=== PATIENT | male | born 1970 | race Caucasian/White ===

== ENCOUNTER → 2020-06-09 | Day surgery (SDC) | payer OTHER ==
[~2020-06-09] MED LIST: 0.9 % SODIUM CHLORIDE 10 ML VIAL. ONE; DEXAMETHASONE SOD PHOS 10 MG/ML VIAL. ONE; IOHEXOL 300 MG/ML 50 ML VIAL. ONE; LIDOCAINE 1% PF 30 ML VIAL. ONE; methylPREDNISolone ACETATE 80 MG/ML VIAL. ONE
[2020-06-09 12:09] VITALS: BP 118/77
== END | disposition home or self-care (01) ==
LOC: SURG 11:10
PROVIDERS: ATTEND Anesthesiology
DX: M54.12 Radiculopathy, cervical region (principal); M79.10 Myalgia, unspecified site; M50.30 Other cervical disc degeneration, unspecified cervical region; I10 Essential (primary) hypertension; E11.9 Type 2 diabetes mellitus without complications; Z95.5 Presence of coronary angioplasty implant and graft; Z88.8 Allergy status to other drugs, medicaments and biological substances
CPT/HCPCS: 62321; J1100; Q9967; J1040

== ENCOUNTER 2020-07-22 13:36 | Emergency (ER) | payer OTHER ==
[~2020-07-22] VITALS: Ht 167.6 cm; Wt 95.0 kg
--- NOTE | 2020-07-22 13:58 | PHYS DOC ---
Past History Past Medical History: Diabetes, NH, Other Additional Past Medical Histor: only has right kidney Past Surgical History: Other Additional Past Surgical Histo: Cardica Stentsx3 Alcohol Use: Rarely General Adult EDM: Chief Complaint: Hematuria HPI: HPI: 49-year-old male presents with rectal bleeding and hematuria. The patient only has a right kidney congenitally. He tells me that he has been having issues with constipation lately and has been needing to take a stool softener or laxative. He is not sure why this bowel habit changed several weeks ago. Today, he had some medium red blood on his toilet paper. He also had 2 episodes of urinating that appeared bloody. Patient has had a kidney stone in the past. He does not have any pain at all. Denies fever or chills. Review of Systems: Review of Systems: Constitutional: Denies fever or chills Eyes: Denies change in visual acuity HENT: Denies nasal congestion or sore throat Respiratory: Denies cough or shortness of breath Cardiovascular: Denies chest pain or edema GI: Blood in stool. Denies abdominal pain, nausea, vomiting, or diarrhea : Hematuria Musculoskeletal: Denies back pain or joint pain Integument: Denies rash Neurologic: Denies headache, focal weakness or sensory changes Endocrine: Denies polyuria or polydipsia Lymphatic: Denies swollen glands Psychiatric: Denies depression or anxiety Current Medications: Current Meds: Current Medications Medications (Trade) Dose Ordered Sig/Bakari Start Time Stop Time Status Last Admin Dose Admin Pantoprazole Sodium (Protonix Vial) 80 mg 1X ONCE 07/22/20 14:00 07/22/20 14:01 Sodium Chloride 1,000 ml @ 1,000 mls/hr 1X ONCE 07/22/20 14:00 07/22/20 14:59 Allergies: Allergies: Allergies Coded Allergies Type Severity Reaction Last Updated Verified Penicillins Allergy Unknown 07/22/20 Yes cephalexin Allergy Unknown 06/09/20 Yes Physical Exam: PE: Constitutional: Well developed, well nourished, obese, no acute distress, non- toxic appearance. [] HENT: Normocephalic, atraumatic, bilateral external ears normal, oropharynx moist, no oral exudates, nose normal. [] Eyes: PERRLA, EOMI, conjunctiva normal, no discharge. [] Neck: Normal range of motion, no tenderness, supple, no stridor. [] Cardiovascular: Heart rate regular rhythm, no murmur [] Lungs & Thorax: Bilateral breath sounds clear to auscultation [] Abdomen: Bowel sounds normal, soft, no tenderness, no masses, no pulsatile masses. [] Skin: Warm, dry, no erythema, no rash. [] Back: No tenderness, no CVA tenderness. [] Extremities: No tenderness, no cyanosis, no clubbing, ROM intact, no edema. [] Neurologic: Alert and oriented X 3, normal motor function, normal sensory function, no focal deficits noted. [] Psychologic: Affect normal, judgement normal, mood normal. [] Current Patient Data: Vital Signs: Vital Signs Date Time Temp Pulse Resp B/P (MAP) Pulse Ox O2 Delivery O2 Flow Rate FiO2 07/22/20 13:42 98.3 104 16 144/95 (111) 98 Room Air EKG: EKG: [] Radiology/Procedures: Radiology/Procedures: [] Impressions: INDICATION: Reason: hematuria, blood in stool / Spl. Instructions: / History: . COMPARISON: None. TECHNIQUE: Axial CT images obtained through the abdomen and pelvis with contrast. One or more of the following individualized dose reduction techniques were utilized for this examination: 1. Automated exposure control; 2. Adjustment of the mA and/or kV according to patient size; 3. Use of iterative reconstruction technique. FINDINGS: Partial visualization of coronary artery calcific atherosclerosis. Multifocal plaque throughout the vasculature. Fat-containing left inguinal hernia. Liver is prominent in size. No peripancreatic fluid collection. Spleen unremarkable. Absent left kidney. There is a couple low-density right renal lesions. This includes exophytic low- density lesion measuring 13 mm which is most likely cystic in nature. Additional subcentimeter low-density right renal lesion which is too small to characterize. Right renal pelvis stone measuring 6 mm with mild prominence of the urothelium. No radiopaque obstructive ureter stone is seen. Urinary bladder wall is mildly prominent. Mild prominence of the sigmoid colon wall in a region with lack of distention. No dilated loops of bowel to suggest obstruction. Colonic diverticulosis. No periappendiceal inflammatory changes. Degenerative changes of the hips and spine. IMPRESSION: * Nonobstructive right renal stone with surrounding urothelial thickening. Given the location the patient would be at risk for intermittent obstruction from this renal stone. The urothelial thickening could be from adjacent irritation. * Mild wall thickening of the urinary bladder. Would correlate with symptoms given that causes such as mild cystitis could have this appearance. * There is also some mild prominence of the rectosigmoid wall which could be from mild inflammation or a region of contraction given that the colon is not distended at this location. Electronically signed by: Rodri Polanco MD (07/22/2020 3:54 PM) [id number] DICTATED AND SIGNED BY: RODRI POLANCO MD DATE: 07/22/20 1543 CC: LOLA CANTU DO; LYNDA KAHN MD ~MTH0 0 Heart Score: C/O Chest Pain: N/A Risk Factors: Risk Factors: DM, Current or recent (<one month) smoker, HTN, HLP, family history of CAD, obesity. Risk Scores: Score 0 - 3: 2.5% MACE over next 6 weeks - Discharge Home Score 4 - 6: 20.3% MACE over next 6 weeks - Admit for Clinical Observation Score 7 - 10: 72.7% MACE over next 6 weeks - Early Invasive Strategies Course & Med Decision Making: Course & Med Decision Making Pertinent Labs and Imaging studies reviewed. (See chart for details) The patient CBC is unremarkable. His urinalysis is significant for urinary tract infection. He has a penicillin cephalosporin allergy. I will treat him with 750 mg of levofloxacin IV. CT is pending. CT shows a stone in the collecting system of the kidney that is likely causing intermittent obstruction. The patient's creatinine is normal at this time. I have advised that he make an appointment as soon as possible with the urologist and take the levofloxacin for the next 6 days. They may need to remove that stone. If the patient's condition worsens in any way he will come back to the emergency room or go directly to the hospital that has urology. He is stable for discharge at this time. [] Yaya Disclaimer: Yaya Disclaimer: This electronic medical record was generated, in whole or in part, using a voice recognition dictation system. Departure Departure: Impression: Primary Impression: Nephrolithiasis Additional Impressions: Hematuria Qualified Codes: R31.0 - Gross hematuria Blood in stool Urinary tract infection Qualified Codes: N10 - Acute pyelonephritis Disposition: HOME / SELF CARE / HOMELESS Condition: STABLE Referrals: LYNDA KAHN MD (PCP) Patient Instructions: Kidney Stones, [id number] Scripts Levofloxacin (LEVOFLOXACIN) 750 Mg Tablet 1 TAB PO DAILY for UTI, #7 TAB Prov: LOLA CANTU DO 07/22/20 LOLA CANTU DO Jul 22, 2020 13:58
[2020-07-22] MEDS ORDERED: PANTOPRAZOLE IV 40 MG VIAL. IVP ONE (14:00)
[2020-07-22] MEDS ORDERED: IV NORMAL SALINE 1,000ML 1,000 ML IV ONE (14:00)
[2020-07-22] MEDS ORDERED: IOHEXOL 300 MG/ML 75 ML VIAL. IV ONE (14:15)
[2020-07-22 14:57] LABS: CLARITY,URINE CLOUDY; COLOR,URINE BROWN
[2020-07-22 14:58] LABS: BILIRUBIN,URINE MOD (NEG); GLUCOSE,URINE NEG (NEG); NITRITE,URINE POS (NEG)
[2020-07-22 14:59] LABS: BACTERIA,URINE MOD /HPF (0-FEW); RBC,URINE TNTC /HPF (0-2); WBC,URINE OCC /HPF (0-4)
[2020-07-22 15:00] LABS: SQUAMOUS EPITHELIAL CELL,UR MOD /LPF
[2020-07-22 15:12] LABS: BASO # 0.1 x10^3/uL (0.0-0.2); BASO % 1 % (0-3); EOS # 0.1 x10^3/uL (0.0-0.7); EOS % 2 % (0-3); HEMATOCRIT 43.8 % (39.0-53.0); HEMOGLOBIN 15.2 g/dL (13.0-17.5); LYMPH % 28 % (24-48); MEAN CORPUSCULAR HEMOGLOBIN 31 pg (25-35); MEAN CORPUSCULAR HGB CONC 35 g/dL (31-37); MEAN CORPUSCULAR VOLUME 89 fL (79-100); MONO # 0.6 x10^3/uL (0.0-1.1); MONO % 8 % (0-9); NEUT # 4.6 x10^3uL (1.8-7.7); NEUT % 62 % (31-73); PLATELET COUNT 234 x10^3/uL (140-400); RED BLOOD COUNT 4.93 x10^6/uL (4.30-5.70); RED CELL DISTRIBUTION WIDTH 13.8 % (11.5-14.5); WHITE BLOOD COUNT 7.3 x10^3/uL (4.0-11.0)
[2020-07-22 15:14] LABS: CALCIUM 8.8 mg/dL (8.5-10.1); GFR 79.4; POTASSIUM 3.6 mmol/L (3.5-5.1)
[2020-07-22 15:22] LABS: ALBUMIN 4.1 g/dL (3.4-5.0); ALBUMIN/GLOBULIN RATIO 1.2 (1.0-1.7); TOTAL BILIRUBIN 0.4 mg/dL (0.2-1.0); TOTAL PROTEIN 7.5 g/dL (6.4-8.2)
--- NOTE | 2020-07-22 15:57 | RAD ---
INDICATION: Reason: hematuria, blood in stool / Spl. Instructions: / History: . COMPARISON: None. TECHNIQUE: Axial CT images obtained through the abdomen and pelvis with contrast. One or more of the following individualized dose reduction techniques were utilized for this examinat ion: 1. Automated exposure control; 2. Adjustment of the mA and/or kV according to patient size; 3 . Use of iterative reconstruction technique. FINDINGS: Partial visualization of coronary artery calcific atherosclerosis. Multifocal plaque throughout the vasculature. Fat-containing left inguinal hernia. Liver is prominent in size. No peripancreatic fluid collection. Spleen unremarkable. Absent left kidney. There is a couple low-density right renal lesions. This includes exophytic low-density lesion measuri ng 13 mm which is most likely cystic in nature. Additional subcentimeter low-density right renal lesi on which is too small to characterize. Right renal pelvis stone measuring 6 mm with mild prominence o f the urothelium. No radiopaque obstructive ureter stone is seen. Urinary bladder wall is mildly prominent. Mild prominence of the sigmoid colon wall in a region with lack of distention. No dilated loops of bowel to suggest obstruction. Colonic diverticulosis. No periappendiceal inflammatory changes. Degenerative changes of the hips and spine. IMPRESSION: * Nonobstructive right renal stone with surrounding urothelial thickening. Given the location the pa tient would be at risk for intermittent obstruction from this renal stone. The urothelial thickening could be from adjacent irritation. * Mild wall thickening of the urinary bladder. Would correlate with symptoms given that causes such as mild cystitis could have this appearance. * There is also some mild prominence of the rectosigmoid wall which could be from mild inflammation or a region of contraction given that the colon is not distended at this location. Electronically signed by: Jam Polanco MD (07/22/2020 3:54 PM) [id number]
[2020-07-22 16:20] VITALS: BP 129/76
[2020-07-22] MEDS ORDERED: LEVO750T5 PO (16:44)
== END 2020-07-22 17:45 | disposition home or self-care (01) ==
LOC: ER 13:36
DX: N20.0 Calculus of kidney (principal); N39.0 Urinary tract infection, site not specified; K92.1 Melena; E11.9 Type 2 diabetes mellitus without complications; I25.2 Old myocardial infarction; Z88.0 Allergy status to penicillin; Z88.1 Allergy status to other antibiotic agents
CPT/HCPCS: 36415; 74177; 80053; 81001; 85025; 87086; 96361; 96365; 96375; 99285; C9113; J1956; J7030; Q9967

== ENCOUNTER → 2020-10-22 | Outpatient (CLI) | payer OTHER ==
[~2020-10-22] MED LIST changes: -0.9 % SODIUM CHLORIDE 10 ML VIAL. ONE; -DEXAMETHASONE SOD PHOS 10 MG/ML VIAL. ONE; -IOHEXOL 300 MG/ML 50 ML VIAL. ONE; +LEVO750T5 PO; -LIDOCAINE 1% PF 30 ML VIAL. ONE; -methylPREDNISolone ACETATE 80 MG/ML VIAL. ONE
--- NOTE | 2020-10-22 13:57 | RAD ---
Limited abdomen ultrasound study right upper quadrant Clinical indications: Elevated liver function tests. FINDINGS: No focal enlargement or mass of the pancreas is seen. There is diffuse increased echogenici ty of the liver with acoustic shadowing which may be seen with fatty infiltration of the liver. This decreases the sensitivity of sonography to detect focal hepatic lesions. No focal hepatic mass is see n otherwise. The liver is enlarged measuring 20.5 cm in length. The extrahepatic bile duct measures 5 mm in caliber which is normal. The length of the right kidney is 14.9 cm. No hydronephrosis or renal mass or perinephric fluid collection is seen on either side. IMPRESSION: Hepatomegaly. Fatty infiltration of the liver. Electronically signed by: Fco Rausch MD (10/22/2020 1:55 PM) [id number]
== END ==
LOC: US 09:54
PROVIDERS: ATTEND Internal Medicine
DX: R16.0 Hepatomegaly, not elsewhere classified (principal); K76.0 Fatty (change of) liver, not elsewhere classified
CPT/HCPCS: 76705